=== PATIENT | male | born 1980 | race Caucasian/White ===

== ENCOUNTER 2025-05-22 07:12 | Emergency (ER) | payer OTHER, SELFPAY ==
--- NOTE | ~2025-05-22 | CT_ITS ---
EXAM: CTA chest PE protocol HISTORY: Pain with deep breath COMPARISON: None. PROCEDURE: Enhanced axial CT images of the chest using intravenous IV contrast. Dose reduction technique(s) was/were used. 3-D maximal intensity projection images (MIPS) obtained under concurrent supervision. FINDINGS: CTA: There is no positive evidence of pulmonary embolism. Mediastinum and Nancy: There is no adenopathy or mass. Heart: It is normal in size. There is no pericardial effusion. Lung and Airways: There is no abnormality demonstrated. Pleural spaces: There is no pleural fluid. There is no pneumothorax. Chest Wall and Axilla: No significant abnormality is seen. Upper Abdomen: There is no abnormality of the visualized structures. Bones: No destructive lesions are seen. The appearance is consistent with the patient's stated age. IMPRESSION: No positive evidence for pulmonary embolism. No significant abnormality is seen. Reviewed, dictated and finalized at location A. OL [employer]GE PROGRAM ASSOCIATE IMPRESSION: No positive evidence for pulmonary embolism. No significant abnormality is seen .
[2025-05-22 07:23] VITALS: BP 125/98; PULSE 84; RESP 18; TEMP 36.6; O2SAT 100
[2025-05-22 07:24] VITALS: PULSE 84; RESP 14; O2SAT 100
[2025-05-22 07:30] VITALS: BP 131/83; PULSE 82; RESP 20; O2SAT 100
[2025-05-22 07:31] VITALS: PULSE 82; RESP 17; O2SAT 100
[2025-05-22 07:45] VITALS: BP 135/92; PULSE 81; RESP 14; O2SAT 100
--- OUTSIDE RECORDS SUMMARY | 2025-05-22 08:07 | XMS_ITS | Clinical Summary ---
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 Name Role Phone Unavailable Primary Care Provider Unavailabl e Social History Tobacco Use Types Packs/Day Years Used Date Smoking Tobacco: Never Assessed Sex and Gender Information Value Date Recorded Sex Assigned at Not on file Legal Sex Male 9:24 AM [employer] Gender Identity Not on file Sexual Orientation Not on file Plan of Treatment Health Maintenance Due Date Last Done Comments Hepatitis C Virus (HCV) Screening 1979 Hepatitis B Immunization (1 of 3 - 19+ 3-dose series) 1998 Cologuard 2024 Colonoscopy 2024 Colorectal Cancer Screening 2024 Immunochemical Fecal Occult Blood 2024 Influenza Immunization (#1) 2025 04/17/2017 SARS-COV-2 Immunization ( season) 2025 Respiratory Syncytial Virus (RSV) Immunization (Adult) (1 - 1-dose 75+ series) 2054 DTaP/Tdap/Td Immunization Discontinued 12/19/2015 TdaP Immunization Completed 12/19/2015 Human Papillomavirus (HPV) Immunization Aged Out No longer eligible b ased on patient's age to complete this topic Meningococcal Immunization (ACWY) Aged Out No longer eligible based on patient's age to complete this topic Pneumococcal Immunization Combined Aged Out No longer eligible based on patient's age to complete this topic Rotavirus Immunization Aged Out No lo nger eligible based on patient's age to complete this topic
--- OUTSIDE RECORDS SUMMARY | 2025-05-22 08:07 | XMS_ITS | Clinical Summary ---
Author Organization [facility] at the [facility] Address [address] [place] [id number] Care Team Providers Care Art Coordinator Name Role Phone Keena Donnelly Primary Care Provider [phone] Galileo De La Fuente MD [facility] [phone] Allergies Active Allergy Reactions Criticality Noted Date Comments Codeine Hives,Rash,Swelli ng Medium 05/23/2017 Metoclopramide Anxiety,Nausea And Vomiting,Rash Medium 04/27/2015 Morphine Rash,Swelling,Unk nown Medium 04/27/2015 Nsaids (Non-Steroidal Anti-Inflammatory Drug) Rash Medium 08/12/2018 Renal insufficiency Prochlorperazine Anxiety,Nausea And Vomiting,Other (See comments),Rash Medium 07/12/2017 Promethazine Anxiety,Rash Medium 04/27/2015 Sulfa (Sulfonamide Antibiotics) Rash Medium 08/12/2018 Medications fluocinonide (LIDEX) 0.05 % creamIndications:D yshidrotic eczema,Contact dermatitis, unspecified contact dermatitis type, unspecified trigger Apply topically 2 (two) times a day as needed for irritation or rash Up to 2 weeks. 30 g 3 Active dicyclomine (BENTYL) 20 mg tabletIndications: Irritable bowel syndrome, unspecified type TAKE ONE TABLET BY MOUTH FOUR TIMES DAILY NEEDED FOR CRAMPING 20 tablet 3 4 Active ondansetron (ZOFRAN) 4 mg tabletIndications: Irritable bowel syndrome, unspecified type TAKE ONE TABLET BY MOUTH EVERY EIGHT hours NEEDED FOR nausea OR vomiting 20 tablet 3 4 Active sertraline (ZOLOFT) 100 mg tabletIndications: Generalized anxiety disorder Take 2 tablets (200 mg total) by mouth daily 180 tablet 4 Active clonazePAM (KlonoPIN) 1 mg tabletIndications: Generalized anxiety disorder Take 1 tablet (1 mg total) by mouth 3 (three) times a day as needed for anxiety 21 tablet 4 Active lovastatin (MEVACOR) 40 mg tabletIndications: Mixed hyperlipidemia TAKE ONE TABLET BY MOUTH DAILY 90 tablet 5 Active amLODIPine (NORVASC) 10 mg tabletIndications: Primary hypertension TAKE ONE TABLET BY MOUTH DAILY 90 tablet 5 Active metoprolol (LOPRESSOR) 100 mg tabletIndications: Primary hypertension TAKE ONE TABLET BY MOUTH TWICE DAILY 180 tablet 5 Active venlafaxine XR (EFFEXOR-XR) 37.5 mg 24 hr capsule Take 1 capsule (37.5 mg total) by mouth daily 5 Active traZODone (DESYREL) 50 mg tablet Take 1 tablet (50 mg total) by mouth nightly as needed for sleep 5 Active hydrOXYzine (VISTARIL) 25 mg capsule Take 1 capsule (25 mg total) by mouth every 4 (four) hours as needed for anxiety 5 Active Active Problems Problem Noted Date Diagnosed Date Routine adult health maintenance 10/14/2020 Overview (04/21/2023): Health Maintenance: -PCV13 vaccine: N/A -PPSV23 vaccine: N/A -Tdap vaccine: 2015 -Influenza vaccine: 2022 -Shingles vaccine: N/A -Colonoscopy: @45 -Last PSA: N/A -Last eye exam: N/A -Last MHA: N/A Assessment & Plan (04/21/2023 8:26 AM CDT): Health Maintenance: -PCV13 vaccine: N/A -PPSV23 vaccine: N/A -Tdap vaccine: 2015 -Influenza vaccine: 2022 -Shingles vaccine: N/A -Colonoscopy: @45 -Last PSA: N/A -Last eye exam: N/A -Last MHA: N/A Patient due for flu shot, administered today. Patient due for lab orders. Continue with healthy diet and exercise habits. See me annually for routine physicals. Assessment & Plan (11/30/2021 1:57 PM CDT): Health Maintenance: -PCV13 vaccine: N/A -PPSV23 vaccine: N/A -Tdap vaccine: 2016 -Influenza vaccine: due -Shingles vaccine: N/A -Colonoscopy: N/A -Last PSA: N/A -Last eye exam: N/A -Last MHA: N/A Patient is up-to-date on health maintenance. Annual labs have already been ordered. Work on healthy diet and exercise habits. See me annually for routine physicals. Assessment & Plan (10/15/2020 9:10 AM CDT): Health Maintenance: -PCV13 vaccine: N/A -PPSV23 vaccine: N/A -Tdap vaccine: 2016 -Influenza vaccine: due -Shingles vaccine: N/A -Colonoscopy: N/A -Last PSA: N/A -Last eye exam: 2020 -Last MHA: N/A Patient did not receive a flu shot this season, he is otherwise up-to-date on health maintenance. Annual labs ordered. Continue with healthy diet and exercise habits. See me annually for routine physicals. Eczema 10/14/2020 Irritable bowel syndrome 10/14/2020 Assessment & Plan (04/21/2023 8:25 AM CDT): Chronic. Refill sent for Zofran p.r.n.. Continue Bentyl p.r.n.. Continue to manage with diet, fiber supplement, and probiotic. Notify me of any new or changing symptoms. Assessment & Plan (11/30/2021 2:30 PM CDT): Chronic. Refill sent for Zofran p.r.n.. Continue Bentyl p.r.n.. Continue to manage with diet and probiotic. Notify me of any new or changing symptoms. Diverticulosis 10/14/2020 Assessment & Plan (04/21/2023 8:23 AM CDT): Chronic and stable. Patient has not had a flare in 2.5 years. Will continue to monitor. Assessment & Plan (11/30/2021 2:30 PM CDT): Chronic. No diverticulitis flare within the past year. Will continue to monitor. Assessment & Plan (10/15/2020 9:08 AM CDT): Patient is seeing a general surgeon at [facility]. They are discussing whether a partial colectomy needs to be performed due to his frequent diverticulitis flares. He will let me know if he needs a referral to a new general surgeon, in case [facility] no longer takes [place]. History of nephrectomy, left 10/14/2020 Assessment & Plan (04/21/2023 8:24 AM CDT): Chronic and stable. Continue to monitor kidney function. Assessment & Plan (11/30/2021 1:55 PM CDT): Will continue to monitor kidney function. Hyperlipidemia 12/29/2015 Assessment & Plan (07/25/2024 11:04 AM NON DESTRUCTIVE TESTING INSPECTOR): Chronic and stable. Continue lovastatin as prescribed. Assessment & Plan (05/20/2024 3:46 PM NON DESTRUCTIVE TESTING INSPECTOR): Patient due for labs, ordered today. Continue lovastatin. Work on healthy diet and exercise habits. Patient will see me soon for his annual physical. Assessment & Plan (04/21/2023 8:24 AM CDT): Chronic. Continue lovastatin 40 mg daily. Due for labs, orders placed. Work on healthy diet and getting at least 150 minutes of exercise per week. Assessment & Plan (11/30/2021 2:30 PM CDT): Chronic. Continue lovastatin 40 mg daily. Due for labs, already ordered. Work on healthy diet and getting at least 150 minutes of exercise per week. Assessment & Plan (10/15/2020 9:09 AM CDT): Patient due for labs, ordered today. Continue current management. Hypertension 12/29/2015 Assessment & Plan (07/25/2024 11:04 AM NON DESTRUCTIVE TESTING INSPECTOR): Chronic and stable. Continue amlodipine and metoprolol as prescribed. Assessment & Plan (05/20/2024 3:48 PM NON DESTRUCTIVE TESTING INSPECTOR): Chronic and controlled. Continue amlodipine and metoprolol as prescribed. Labs ordered. Low-salt diet. Work on getting 150 minutes of as per week. Assessment & Plan (04/21/2023 8:25 AM CDT): Chronic and controlled. Continue amlodipine and metoprolol as prescribed. Labs ordered. Low-salt diet. Work on getting 150 minutes of as per week. Assessment & Plan (11/30/2021 1:56 PM CDT): Chronic and controlled. Continue amlodipine and metoprolol as prescribed. Labs already ordered. Low-salt diet. Work on getting 150 minutes of as per week. Assessment & Plan (10/15/2020 9:09 AM CDT): Patient due for labs. Ordered today. Continue current management. Blood pressure is well controlled today. Generalized anxiety disorder 12/29/2015 Assessment & Plan (07/25/2024 12:17 PM NON DESTRUCTIVE TESTING INSPECTOR): During our visit my MA called his psychiatrist's office, I requested she find out their next availability so that I could relay that to the patient so he can schedule a follow-up. When I discussed again with the patient that I do not prescribe long-term benzodiazepines he became upset and stated w hat am I supposed to do, go to the ER? I stated that yes he may have to go to the ER if he experiences withdrawal like symptoms. I explained again that he needs to see his psychiatrist for long-term management of a benzodiazepine. 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 Once patient understood that I would not be providing a prescription for him today he got up and walked out of the room before we could finish our visit. Shortly after he left I received a call from [facility]. He presented to their ED stating that I would not fill any of his medication and he needed his Klonopin. I reviewed the patient's history with the SERVICE AIDE and explained that I am not the prescriber and that I have explained to him on more than one occasion that he needs to see psychiatry for refills, yet he has not scheduled an appointment. The ER SERVICE AIDE will reinforce the same message, that he needs to see psychiatry for mcfp care. Assessment & Plan (05/20/2024 3:49 PM NON DESTRUCTIVE TESTING INSPECTOR): Chronic and worsening due to his father's declining health. No SI. Patient lost his Klonopin a week ago. Discussed that I can send in a 1 week temp supply to get him through to his next refill. However I am not certain if the pharmacy will in fact be able to fill this. Patient is aware. Patient aware that I do recommend he see Psychiatry for long-term management of benzodiazepines. He was given a handout today with a list of psychiatrists in the area. I recommended he look into the walk-in clinic in [facility]. I also strongly encouraged him to look into counseling. This will be necessary in the coming months as his father's health declines. Will continue his Zoloft 200 mg daily. Consider hydroxyzine. Could try adding Wellbutrin if needed. Patient will follow-up with me in the next few weeks for his annual physical. Assessment & Plan (04/21/2023 8:24 AM CDT): Chronic and controlled. Continue Zoloft 200 mg daily. Continue Klonopin as prescribed by Psychiatry. Assessment & Plan (11/30/2021 1:55 PM CDT): Continue current management. Continue follow-up with Psychiatry. Notify me of any new or changing symptoms. Assessment & Plan (10/15/2020 9:09 AM CDT): Well controlled. Continue seeing Psychiatry. I have refilled his Zoloft today. Patient reports his medication is significantly more expensive when it comes from his psychiatrist vs PCP. He will continue to get Klonopin from his psychiatrist. History of pulmonary embolism 07/10/2000 Resolved Problems Problem Noted Date Diagnosed Date Resolved Date Diverticulitis 01/04/2019 10/14/2020 Stage 3a chronic kidney disease 12/29/2015 04/21/2023 Assessment & Plan (11/30/2021 1:56 PM CDT): Chronic and stable. Will continue to monitor. Assessment & Plan (10/15/2020 9:08 AM CDT): Patient due for labs, ordered today. Continue with no NSAID use. Stay hydrated. Encounters Date Type Department Care Team Description 05/08/2025 7:33 AM CDT - 05/08/2025 4:54 PM CDT [facility] [address] [place] [address] Heriberto Dubon DO Suicidal ideation (Primary Dx) Discharge Disposition: Discharge to psych hospital or psych unit from Last 3 Months Immunizations Immunization Administration Dates Next Due Influenza, Quadrivalent, Spl it, Preservative Free, Intramuscular 04/21/2023,04/17/2017 Influenza, Unspecified 04/09/2022(Deferr ed: Patient Refused),04/09/2021(Deferred: Patient Refused),04/09/2020(Deferred: Patient Refused) Tdap 12/19/2015 Surgical History Surgery Date Site/Laterality Comments NEPHRECTOMY Left Medical History Medical History Date Comments Diverticulitis 01/04/2019 Diverticulosis 10/14/2020 Eczema 10/14/2020 History of pulmonary embolism 07/10/2000 Hyperlipidemia 12/29/2015 Hypertension 12/29/2015 Irritable bowel syndrome 10/14/2020 Generalized anxiety disorder 12/29/2015 Chronic kidney disease (CKD), stage III (moderat e) ([facility]) 12/29/2015 Family History Medical History Relation Name Comments Cancer Father Jarad Desai Diabetes Father Jarad Desai Heart attack Father Jarad Desai Heart disease Father Jarad Desai Hyperlipidemia Father Jarad Desai Hypertension Father Jarad Desai Kidney disease Father Jarad Desai Transient ischemic attack Father Jarad Pires n enlarged prostate Father Jarad Desai Anemia Mother Marleny Desai Diabetes Mother Marleny Desai Hyperlipidemia Mother Marleny Desai Hypertension Mother Marleny Desai Panic attack Sister Relation Name Status Comments Father Jarad Desai Alive Maternal Grandfather Maternal Grandmother Mother Marleny Desai Alive Paternal Grandfather Paternal Grandmother Sister Alive Social History Tobacco Use Types Packs/Day Years Used Date Smoking Tobacco: Never Cigarettes Smokeless Tobacco: Never AUDIT-C Answer Date Recorded Q1: How often do you have a drink containing alcohol? Never 05/20/2024 Q2: How many drinks containi ng alcohol do you have on a typical day when you are drinking? Patient does not drink Q3: How often do you have si x or more drinks on one occasion? Never 05/20/2024 PHQ-2 Answer Date Recorded PHQ-2 Total Score (If total score is 3 or more points, staff should administer the PHQ-9) 2 07/25/2024 PHQ-9 Answer Date Recorded PHQ-9 Total Score 6 07/25/2024 Personal Safety Answer Date Recorded Have you ever been in or are you currently in a harmful physical or emotional relationship or is someone making you feel afraid or unsafe? Denies 05/08/2025 Sex and Gender Information Value Date Recorded Sex Assigned at Not on file Legal Sex Male 6:25 AM NON DESTRUCTIVE TESTING INSPECTOR Gender Identity Not on file Sexual Orientation Not on file Last Filed Vital Signs Vital Sign Reading Time Taken Comments Blood Pressure 130/85 05/08/2025 3:35 PM CDT Pulse 76 05/08/2025 3:35 PM CDT Temperature 37.1 C (98.7 F) 05/08/2025 7:52 AM CDT Respiratory Rate 16 05/08/2025 3:35 PM CDT Oxygen Saturation 99% 05/08/2025 3:35 PM CDT Inhaled Oxygen Concentration - - Weight 58.5 kg (129 lb) 05/08/2025 7:52 AM CDT Height 180.3 cm (5' 10.98) 05/08/2025 7:52 AM C DT Body Mass Index 18 05/08/2025 7:52 AM CDT Plan of Treatment Health Maintenance Due Date Last Done Comments Hepatitis C Screening 1979 Hepatitis B Screening 1997 Regular Well Visit/Exam 18-64 04/21/2024 04/21/2023, 11/30/2021, 10/15/2020, Additional history exists Covid-19 Vaccine ( season) 2025 06/08/2021, 12/01/2020 Influenza Vaccine (#1) 2025 04/21/2023, 2016 Depression Screening 07/25/2025 07/25/2024, 07/25/2024, 05/20/2024, Additional history exists DTaP/Tdap/Td Vaccine (2 - Td or Tdap) 12/18/2025 12/19/2015 Colon Cancer Screening-Colonoscopy 05/08/2027 05/08/2017, 01/05/2017 HPV Vaccines Aged Out No longer eligi ble based on patient's age to complete this topic Pneumococcal vaccine <65 Aged Out No longer eligible based on patient's age to complete this topic Procedures Procedure Name Priority Date/Time Associated Diagnosis Comments URINALYSIS, MICROSCOPIC ONLY STAT 05/08/2025 8:29 AM CDT DRUGS OF ABUSE SCREEN, URINE WITHOUT CONFIRMATION STAT 05/08/2025 8:29 AM CDT URINE CULTURE STAT 05/08/2025 8:29 AM CDT URINALYSIS AND REFLEX TO MICROSCOPIC AND CULTURE STAT 05/08/2025 8:29 AM CDT EGFR STAT 05/08/2025 7:48 AM CDT DIFFERENTIAL AUTO STAT 05/08/2025 7:4 8 AM CDT ETHANOL STAT 05/08/2025 7:48 AM CDT THYROID FUNCTION CASCADE STAT 05/08/2025 7:48 AM CDT COMPREHENSIVE METABOLIC PANEL STAT 05/08/2025 7:48 AM CDT CBC WITH AUTO DIFFERENTIAL STAT 05/08/2025 7:48 AM CDT COVID-19 CORONAVIRUS RNA STAT 05/08/2025 7:48 AM CDT COLONOSCOPY Routine 05/08/2017 from Last 3 Months or Most Recently Relevant to Health Maintenance Results * (ABNORMAL) Urinalysis reflex to microscopic and culture Urine (05/08/2025 8:29 AM CDT) Color, ur Straw Yellow Comment:Testing performed by : [facility], [address] [place] [address], [place]., [address] Clarity, ur Clear Clear MAHENDRA Comment:Testing performed by : [address], [place]., [address] Specific gravity, ur 1.015 1.003 - 1.030 MAHENDRA Comment:Testing performed by : [address], [place]., [address] pH, urine 8.5 MAHENDRA Comment: Interpretive Data U rine pH is affected by diet, medications, systemic acid-base disturbances, and renal tubular function. pH may affect urinary stone formation. For example, urine pH below 6.0 may help reduce the tendency for calcium phosphate stones and pH greater than 6.0 may reduce the tendency for uric acid stone formation. Source: [facility] [employer] Current Interpretive Data was last revised on 2017 Testing performed by: [address] [address] Protein, ur ql Trace(A) Negative MAHENDRA Comment:Testing performed by : [address] [address] Glucose, ur ql Negative Negative MAHENDRA Comment:Testing performed by : [address] [address] Ketones, ur Negative Negative MAHENDRA Comment:Testing performed by : [address] [address] Bilirubin, ur Negative Negative MAHENDRA Comment:Testing performed by : [address] [address] Blood, ur Negative Negative MAHENDRA Comment:Testing performed by : [address], [place]., [address] Urobilinogen, ur <2.0 <2.0 mg/dL MAHENDRA Comment:Testing performed by : [address], [place]., [address] Nitrite, ur Negative Negative MAHENDRA Comment:Testing performed by : [address] [address] Leukocyte esterase, ur 2 +(A) Negative MAHENDRA [place] Comment:Testing performed by : [address] [address] UA reflex comment Reflex to microscopic UA will be performed. MAHENDRA [place] Comment:Testing performed by : [address] [address] Urine 05/08/2025 8:29 AM CDT 05/08/2025 8:33 AM CDT Heriberto Dubon DO LAB MICROBIOLOGY - GENERAL ORDERABLES Final Result MAHENDRA FR[place] [address] [facility] Department [place] [address] * (ABNORMAL) Drugs of Abuse Screen, Urine without Confirmation (05/08/2025 8:29 AM CDT) Amphetamine, ur Not Detected CutOff 500ng/mL Comment: Interpretive Data - Amphetamines: Samples containing greater than 500 ng/mL d-methamphetamine or other cross-reacting amphetamine compounds are reported as positive. Amphetamine immunoassays are subject to significant false positive rates due to cross-reactivity of non-amphetamine drugs. Confirmatory testing required for definitive results. Current Interpretive Data was last reviewed 2023. Testing performed by: [address] [address] Barbiturates, ur Not Detected CutOff 200ng/mL MAHENDRA [place] Comment: Interpretive Data - Barbiturates: Samples containing greater than 200 ng/mL secobarbital or other cross-reacting barbiturate compounds are reported as positive. False positive and false negative results are possible. Confirmatory testing required for definitive results. Current Interpretive Data was last reviewed 2023. Testing performed by: [address] [address] Benzodiazepines, ur Screen Positive, presumptive (A) CutOff 100ng/mL MAHENDRA [place] Comment: Interpretive Data - Benzodiazepines: Samples containing greater than 100 ng/mL nordiazepam or other cross-reacting compounds are reported as positive. False positive and false negative results are possible. Confirmatory testing required for definitive results. Current Interpretive Data was last reviewed 2023. Testing performed by: [facility], [address] [place] [address]., [address] Cannabinoids, ur Screen Positive, presumptive (A) CutOff 50 ng/mL [facility] Comment: Interpretive Data - Cannabinoids: Samples containing greater than 50 ng/mL delta-9 THC -COOH or other cross- reacting compounds are reported as positive. False positive and false negative results are possible. Confirmatory testing required for definitive results. Current Interpretive Data was last reviewed 2023. Testing performed by: [facility], [address] [place] [address], [place]., [address] Cocaine, ur Not Detected CutOff 150ng/mL [facility] Comment: Interpretive Data - Cocaine: Samples containing greater than 150 ng/mL benzoylecgonine or other cross- reacting compounds are reported as positive. False positive and false negative results are possible. Confirmatory testing required for definitive results. Current Interpretive Data was last reviewed 2023. Testing performed by: [facility], [address] [place] [address]., [address] Fentanyl, Ur Not Detected CutOff 5 ng/mL [facility] Comment: Interpretive Data - Fentanyl: Samples containing greater than 1 ng/mL fentanyl or other cross-reacting fentanyl compounds are reported as positive. False positive and false negative results are possible. Confirmatory testing required for definitive results. Current Interpretive Data was last reviewed 2023. Testing performed by: [address] [address] Methadone, ur Not Detected CutOff 300ng/mL [facility] Comment: Interpretive Data - Methadone: Samples containing greater than 300 ng/mL d,l-methadone or other cross-reacting compounds are reported as positive. False positive and false negative results are possible. Confirmatory testing required for definitive results. Current Interpretive Data was last reviewed 2023. Testing performed by: [address], [place]., [address] Opiates, ur Not Detected CutOff 300ng/mL [facility] Comment: Interpretive Data - Opiates: Samples containing greater than 300 ng/mL morphine or other cross-reacting compounds are reported as positive. False positive and false negative results are possible. Confirmatory testing required for definitive results. Current Interpretive Data was last reviewed 2023. Testing performed by: [address] [address] Oxycodone, ur Not Detected CutOff 100ng/mL MAHENDRA Comment: Interpretive Data - Oxycodone: Samples containing greater than 100 ng/mL oxycodone or other cross-reacting compounds are reported as positive. False positive and false negative results are possible. Confirmatory testing required for definitive results. Current Interpretive Data was last reviewed 2023. Testing performed by: [address] [address] Phencyclidine, ur Not Detected CutOff 25 ng/mL MAHENDRA Comment: Interpretive Data - Phencyclidine: Samples containing greater than 25 ng/mL phencyclidine or other cross-reacting compounds are reported as positive. False positive and false negative results are possible. Confirmatory testing required for definitive results. Current Interpretive Data was last reviewed 2023. Testing performed by: [address] [address] Urine Creatinine 123 mg/dL MAHENDRA Comment: Interpretive Data Urine Creatinine: < 10 mg/dL is extremely dilute = or > 10 but < 20 mg/dL is dilute = or > 20 mg/dL is normal Current Interpretive Data was last revised on 2017. Testing performed by: [address] [address] Urine 05/08/2025 8:29 AM CDT 05/08/2025 8:35 AM CDT Narrative MAHENDRA - 05/08/2025 9:32 AM CDT Drug of Abuse screening is performed by immunoassay for medical purposes only. This is not to be used for Pain Management purposes. Heriberto Dubon DO LAB URINE ORDERABLES Final Result MAHENDRA [address] [facility] Department [place] [address] * (ABNORMAL) Urinalysis, microscopic only (05/08/2025 8:29 AM CDT) WBC, ur 11-20(A) 0 - 5 /HPF Comment:Testing performed by : [facility], [address] [place] [address], [place]., [address] RBC, ur 6-10(A) 0 - 2 /HPF MAHENDRA Comment:Testing performed by : [address], [place]., [address] Epithelial cells, squamous, ur 11-20(A) 0 - 5 /HPF MAHENDRA Comment:Testing performed by : [address], [place]., [address] Bacteria, ur Trace(A) MAHENDRA Comment:Testing performed by : [address], [place]., [address] Mucous, ur Present(A) MAHENDRA Comment:Testing performed by : [facility], [address] [place] [address], [place]., [address] Culture Reflex Comment Reflex to urine culture will be performed. MAHENDRA Comment:Testing performed by : [address], [place]., [address] Urine 05/08/2025 8:29 AM CDT 05/08/2025 8:33 AM CDT Heriberto Dubon DO LAB URINE ORDERABLES Final Result MAHENDRA [address] [facility] Department [place] [address] * Urine culture Urine (05/08/2025 8:29 AM CDT) Report Final Report: Less than 100,000 colonies/mL (clinically insignificant growth based on current clinical standards) Comment:Testing performed by : [facility], [address], [place]., [address] Organism (CLINICALLY INSIGNIFICANT GROWTH MAHENDRA Urine 05/08/2025 8:29 AM CDT 05/08/2025 11:28 AM CDT Narrative MAHENDRA - 05/09/2025 12:11 PM CDT Urine culture reflexed based upon urinalysis results. Testing performed by [facility] ([phone]) Heriberto Dubon DO LAB MICROBIOLOGY - GENERAL ORDERABLES Final Result Performing Organization Address City/[facility] Co de Phone Number MAHENDRA [place] [address] [facility] Department [place] [address] * COVID-19 Coronavirus RNA Nasopharyngeal (05/08/2025 7:48 AM CDT) COVID-19 RNA Negative Negative Comment:Testing performed by : [facility], [address] [place] [address]., [id number] Nasopharyngeal 05/08/2025 7: 48 AM CDT 05/08/2025 7:51 AM CDT Narrative MAHENDRA FRANCE - 05/08/2025 8:28 AM CDT Is the patient experiencing any symptoms consistent with COVID (eg. Fever, cough, shortness of breath)?->No What is the reason for testing?->Screening prior to Behavioral health admission Interpretive data Testing performed by [facility]. This test is performed using the [employer]ine[employer] Xpert Xpress CoV-2 plus assay. This is a real-time RT-PCR test intended for the qualitative detection of nucleic acid from the SARS-CoV-2. This assay has been cleared by the [place] Food and Drug administration. The performance characteristics have been verified by the [facility]. Results must be considered in the clinical context, and a negative result does not rule out infection. Interpretive data last revised 2024. Interpretive data Testing performed by [facility]. This test is performed using the [employer] Xpert Xpress CoV-2 plus assay. This is a real-time RT-PCR test intended for the qualitative detection of nucleic acid from the SARS-CoV-2. This assay has been cleared by the [place] Food and Drug administration. The performance characteristics have been verified by the [facility]. Results must be considered in the clinical context, and a negative result does not rule out infection. Interpretive data last revised 2024. us Heriberto Dubon DO LAB MICROBIOLOGY - GENERAL ORDERABLES Final Result Performing Organization Address City/[facility] de Phone Number MAHENDRA [facility] [place] [address] * eGFR (05/08/2025 7:48 AM CDT) [facility] eGFR >90 >=60 mL/min/1. 73 m2 Comment: Interpretive Data Reference Interval Normal >/= 90 mL/min/1.73m2 Mildly decreased* 60 - 89 mL/min/1.73m2 Mildly to moderately decreased 45 - 59 mL/min/1.73m2 Moderately to severely decreased 30 - 44 mL/min/1.73m2 Severely decreased 15 - 29 mL/min/1.73m2 Kidney Failure < 15 mL/min/1.73m2 *Relative to young adult level Estimated glomerular filtration rate is determined by the 2020 CKD-EPI equation recommended by the National Kidney Foundation (A Unifying Approach to GFR Estimation: Recommendations of the NKF-ASK Task Force on Reassessing the Inclusion of Race in Diagnosing Kidney Disease, JASN 2020). The CKD-EPI equation should not be used for patients with unstable renal function and has not been validated in children and those over 70. Current interpretive data was last reviewed 2021. Testing performed by: [address] [address] Blood 05/08/2025 7:48 AM CDT 05/08/2025 7:52 AM CDT Heriberto Dubon DO LAB BLOOD ORDERABLES Final Result Performing Organization Address [facility] Co de Phone Number MAHENDRA [facility] Department [place] [address] * Differential, auto (05/08/2025 7:48 AM CDT) [facility] Neutrophil abs 3.76 1.50 - 6.50 K/cumm Comment:Testing performed by : [address] [address] Imm gran abs 0.02 0.00 - 0.10 K/cumm MAHENDRA Comment:Testing performed by : [address] [address] Lymphocyte abs 2.14 0.80 - 3.30 K/cumm [facility] Comment:Testing performed by : [address] [address] Monocyte abs 0.72 0.20 - 0.80 K/cumm [facility] Comment:Testing performed by : [address] [address] Eosinophil abs 0.33 0.00 - 0.50 K/cumm [facility] Comment:Testing performed by : [address], [place]., [address] Basophil abs 0.08 0.00 - 0.10 K/cumm [facility] Comment:Testing performed by : [address] [address] Neutrophil pct 53.3 % [facility] Comment: Interpretive Data Percent cell count reference ranges are not reported, since discordance with absolute values may lead to misinterpretation of CBC data. Current Interpretive Data was last revised on 2017. Testing performed by: [address] [address] Imm gran pct 0.3 % [facility] Comment: Interpretive Data Percent cell count reference ranges are not reported, since discordance with absolute values may lead to misinterpretation of CBC data. Current Interpretive Data was last revised on 2017. Testing performed by: [address] [address] Lymphocyte pct 30.4 % [facility] Comment: Interpretive Data Percent cell count reference ranges are not reported, since discordance with absolute values may lead to misinterpretation of CBC data. Current Interpretive Data was last revised on 2017. Testing performed by: [address] [address] Monocyte pct 10.2 % [facility] Comment: Interpretive Data Percent cell count reference ranges are not reported, since discordance with absolute values may lead to misinterpretation of CBC data. Current Interpretive Data was last revised on 2017. Testing performed by: [address] [address] Eosinophil pct 4.7 % [facility] Comment: Interpretive Data Percent cell count reference ranges are not reported, since discordance with absolute values may lead to misinterpretation of CBC data. Current Interpretive Data was last revised on 2017. Testing performed by: [address] [address] Basophil pct 1.1 % MAHENDRA [place] Comment: Interpretive Data Percent cell count reference ranges are not reported, since discordance with absolute values may lead to misinterpretation of CBC data. Current Interpretive Data was last revised on 2017. Testing performed by: [address] [address] Blood 05/08/2025 7:48 AM CDT 05/08/2025 7:53 AM CDT Heriberto Dubon LAB BLOOD ORDERABLES Final Result Performing Organization Address [facility] Co de Phone Number [address] [place] [address] * Thyroid Function [place] (05/08/2025 7:48 AM CDT) Pathologist [facility] TSH 1.22 0.30 - 4.20 mcIUnit/mL Comment:Testing performed by : [address] [address] Blood 05/08/2025 7:48 AM CDT 05/08/2025 7:52 AM CDT Heriberto Dubon LAB BLOOD ORDERABLES Final Result Performing Organization Address City/[facility] Co de Phone Number [address] [place] [address] * (ABNORMAL) CBC with auto differential (05/08/2025 7:48 AM CDT) Pathologist [facility] WBC 7.05 3.80 - 9.90 K/cumm Comment:Testing performed by : [address] [address] Hgb 14.4 13.0 - 17.5 g/dL MAHENDRA [place] Comment:Testing performed by : [address], [address] Hct 42.0 38.9 - 50.3 % MAHENDRA Comment:Testing performed by : [address] [address] Plt 280 150 - 400 K/cumm MAHENDRA Comment:Testing performed by : [address] [address] MPV 8.6(L) 9.1 - 12.3 fL MAHENDRA Comment:Testing performed by : [address], [address] RBC 4.94 4.30 - 5.80 M/cumm MAHENDRA Comment:Testing performed by : [address], [address] MCV 85.0 81.3 - 96.4 fL MAHENDRA Comment:Testing performed by : [address], [address] MCH 29.1 27.1 - 33.3 pg MAHENDRA Comment:Testing performed by : [address], [address] MCHC 34.3 32.3 - 35.7 g/dL MAHENDRA Comment:Testing performed by : [address], [address] RDW CV 13.2 11.1 - 14.9 % MAHENDRA Comment:Testing performed by : [address], [address] RDW SD 41.1 35.7 - 48.1 fL MAHENDRA Comment:Testing performed by : [address], [address] NRBC abs 0.00 0.00 - 0.01 K/cumm MAHENDRA Comment:Testing performed by : [address], [address] Blood Venous blood specimen / Unknown 05/08/2025 7:48 AM CDT 05/08/2025 7:53 AM CDT Heriberto Dubon DO LAB BLOOD ORDERABLES Final Result Performing Organization Address [facility] Co de Phone Number [place] [phone] [place] [address] * Ethanol (05/08/2025 7:48 AM CDT) Pathologist [facility] Ethanol <10 <=10 mg/dL Comment: Interpretive Data Legal limit of intoxication > or = 80 mg/dL Levels > or = 400 mg/dL are potentially TOXIC. Current interpretive data was last revised on 2018. Testing performed by: [address] [address] Blood 05/08/2025 7:48 AM CDT 05/08/2025 7:52 AM CDT Heriberto Dubon DO LAB BLOOD ORDERABLES Final Result Performing Organization Address [facility] de Phone Number [place] [phone] [place] [address] * Comprehensive metabolic panel (05/08/2025 7:48 AM CDT) [facility] Sodium 140 135 - 145 mmol/L Comment:Testing performed by : [address] [address] Potassium, pl 4.1 3.3 - 4.9 mmol/L MAHENDRA Comment:Testing performed by : [address] [address] Chloride 101 97 - 110 mmol/L MAHENDRA Comment:Testing performed by : [address] [address] CO2 29 22 - 32 mmol/L MAHENDRA Comment:Testing performed by : [address] [address] Anion gap 10 2 - 15 mmol/L MAHENDRA Comment:Testing performed by : [address] [address] BUN 9 6 - 25 mg/dL MAHENDRA Comment:Testing performed by : [address] [address] Creatinine 1.00 0.80 - 1.30 mg/dL MAHENDRA Comment:Testing performed by : [address] [address] Glucose 96 70 - 199 mg/dL MAHENDRA Comment: Interpretive Data Fasting glucose >/= 126 mg/dl is diagnostic for diabetes. Fasting is defined as no caloric intake for at least 8 hours. Fasting glucose between 100 mg/dl to 125 mg/dl is diagnostic of prediabetes. In a patient with classic symptoms of hyperglycemia or hyperglycemic crisis, a random glucose >/= 200 mg/dl is diagnostic for diabetes. In the absence of unequivocal hyperglycemia, results should be confirmed by repeat testing. The classification and Diagnosis of Diabetes Diabetes Care 2021; 46: S19-S40. Current interpretive data was last revised 2022. Testing performed by: [address] [address] Calcium 9.6 8.5 - 10.3 mg/dL MAHENDRA Comment:Testing performed by : [address] [address] Bilirubin, total 0.4 0.1 - 1.2 mg/dL MAHENDRA Comment:Testing performed by : [address] [address] Protein, pl 7.3 6.5 - 8.5 g/dL MAHENDRA Comment:Testing performed by : [address] [address] Albumin 4.9 3.5 - 5.0 g/dL MAHENDRA Comment:Testing performed by : [address] [address] Alk phos 73 40 - 130 Units/L MAHENDRA Comment:Testing performed by : [address] [address] ALT 19 7 - 55 Units/L MAHENDRA Comment:Testing performed by : [address] [address] AST 16 10 - 50 Units/L MAHENDRA Comment:Testing performed by : [address] [address] Blood 05/08/2025 7:48 AM CDT 05/08/2025 7:52 AM CDT Heriberto Dubon DO LAB BLOOD ORDERABLES Final Result MAHENDRA MH [address] [facility] Department [place] [address] * Colonoscopy (05/08/2017) Anatomical Region Laterality Modality Other Historical Provider ENDOSCOPY PROCEDURES Ana Maria l Result from Last 3 Months or Most Recently Relevant to Health Maintenance Insurance [facility] Care Teams Art Coordinator Relationship Specialty Start Date End Date Keena Donnelly PA [address] [place] [address] PCP - General Family Medicine 10/15/20 Galileo De La Fuente MD [address] [place] [address] Consulting Physician Family Medicine 10/15/20
--- OUTSIDE RECORDS SUMMARY | 2025-05-22 08:07 | XMS_ITS | Clinical Summary ---
Author Organization [facility] Address [address] [place] [address] Care Team Providers Care Soil Conservation Technician Name Role Phone Unavailable Primary Care Provider Unavailabl e Source Comments [facility],non-owned Affiliates and Associated Physician Practices is amultiple site organization consisting of ambulatory clinics and hospital sitesin [place], [place], [place] and [place]. This disclosure is being madepursuant to the Care Everywhere program and may not contain all information available regarding this patient. Last updated 18.[facility] Allergies Active Allergy Reactions Criticality Noted Date Comments Codeine Skin Reactions Medium 08/24/2017 Metoclopramide Nausea and/or Vomiting Low 8 Morphine Skin Reactions Medium 08/24/2017 Nsaids Other Low 09/27/2017 Kidney Prochlorperazine Nausea and/or Vomiting Low 018 Sulfa Drugs Nausea and/or Vomiting Low 08/24/2017 Medications * Be aware that medications may not be up to date on this document. Alwaysverify current medications with the patient. metoprolol tartrate (LOPRESSOR) 100 MG tablet Take 100 mg by mouth BID. 08/21/2017 Active amLODIPine (NORVASC) 10 MG tablet Take 10 mg by mouth DAILY. 07/31/2017 Active lovastatin (MEVACOR) 20 MG tablet Take 20 mg by mouth DAILY. 07/31/2017 Active sertraline (ZOLOFT) 100 MG tablet Take 100 mg by mouth DAILY. 08/01/2017 Active clonazePAM (KLONOPIN) 1 MG tablet Take 1 mg by mouth 3X/day PRN. 08/10/2017 Active HYDROcodone-acet aminophen (NORCO) 10-325 MG tablet 0 08/11/2017 Active metroNIDAZOLE (FLAGYL) 500 MG tablet Take 500 mg by mouth TID. 30 tablet 0 10/10/2017 Active ciprofloxacin (CIPRO) 500 MG tablet Take 500 mg by mouth BID. 20 tablet 0 10/10/2017 Active ondansetron (ZOFRAN) 4 MG tablet Take 1 tablet by mouth every 8 hours as needed for Nausea/Vomi ting 15 tablet 10/18/2017 Active polyethylene glycol (GOLYTELY) 236 G solution Drink 1/2 of prep at 6pm the night before test. Finish the prep 4 hours before test. 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 Family History Medical History Relation Name Comments CVA Father Status: Alive Thyroid Disease Maternal Grandmother Stat us: Alive Arthritis - Rheumatoid Maternal Uncle Sta tus: Alive Hypertension Mother Status: Alive Other - Gastrointestinal Mother Div erticulitis Crohn's Disease Other Cousin Status: Aliv e None Known Sister Status: Alive Relation Name Status Comments Father Maternal Grandmother Maternal Uncle Mother Other Cousin Sister Social History Tobacco Use Types Packs/Day Years Used Date Smoking Tobacco: Never Smokeless Tobacco: Never Alcohol Use Standard Drinks/Week Comments No 0 (1 standard drink = 0.6 oz pur e alcohol) Sex and Gender Information Value Date Recorded Sex Assigned at Not on file 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 Gender Identity Not on file Sexual Orientation Not on file Last Filed Vital Signs Vital Sign Reading Time Taken Comments Blood Pressure 143/97 10/18/2017 4:26 AM CDT Pulse 60 10/18/2017 4:26 AM CDT Temperature 36.5 C (97.7 F) 10/18/2017 4:26 AM CDT Respiratory Rate 18 10/18/2017 4:26 AM CDT Oxygen Saturation 99% 10/18/2017 4:26 AM CDT Inhaled Oxygen Concentration - - Weight 86.2 kg (190 lb) 10/18/2017 4:26 AM CDT Height 180.3 cm (5' 11) 10/18/2017 4:26 AM CDT Body Mass Index 26.5 10/18/2017 4:26 AM CDT Plan of Treatment Health Maintenance Due Date Last Done Comments HYUN (AGES 45-75) - COL ON CA SCREENING 1979 COLON MONITORING 1979 COLONOSCOPY - COLON CA SCREENING 1979 CT COLONOGRAPHY - COLON CA SCREENING 1979 Colorectal Cancer Screening 1979 FIT - COLON CA SCREENING 1979 FLEX SIG - COLON CA SCREENING 1979 HIV SCREENING 1994 HEPATITIS C SCREENING 03/15/1997 DTAP/TDAP/TD VACCINES (1 - Tdap) 1998 HEPATITIS B VACCINE (1 of 3 - 19+ 3-dose series) 1998 DEPRESSION SCREENING 07/10/2024 COVID-19 VACCINE (1 - 2023-2 5 season) 2025 INFLUENZA VACCINE (#1) 2025 ZOSTER VACCINE (1 of 2) 2029 HIB VACCINE Aged Out No longer eligi ble based on patient's age to complete this topic HPV VACCINE Aged Out No longer eligi ble based on patient's age to complete this topic MENINGOCOCCAL (Group B) VACC INE SHARED DECISION-MAKING Aged Out No longer eligibl e based on patient's age to complete this topic MENINGOCOCCAL GROUPS A/C/Y/W VACCINE Aged Out No longer eligible b ased on patient's age to complete this topic PNEUMOCOCCAL VACCINE Aged Out No long er eligible based on patient's age to complete this topic Insurance [facility]
--- OUTSIDE RECORDS SUMMARY | 2025-05-22 08:07 | XMS_ITS | Patient Health Record ---
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 Name Role Phone Dean Prince Primary Care Provider Lois Oleary Unavailable [phone] Li Reyna Unavailable [phone] ZoranGhada Unavailable [phone] Allergies Allergen (clinical drug ingredient) Drug/Non Drug Allergy documented on EMR Reaction Allergy Type Onset Date Status codeine Codeine Unknown Drug Allergy Active morphine Morphine Unknown Drug Allergy Active Substance with sulfonamide structure and antibacterial mechanism of action (substance) Sulfa Antibiotics Unknown Drug Allergy Active Results Component Value Reference Range Notes 14 Panel Urine Drug Screen Reviewed date:05/14/2025 11:20:38 AM Interpretation: Performing Lab: Notes/Report: THC pos LUH neg MOP (OPI) neg AMP neg MET neg BAR neg BZO neg MDMA neg MTD neg OXY neg PCP neg BUP neg TCA neg FTY neg CBC With Differential/Platel et* Reviewed date:05/20/2025 10:55:10 AM Interpretation:Normal Performing Lab:[facility] [place], [address] [facility] ([facility] Phone - [phone], Director - PhDRicchiuti Notes/Report: WBC 11.4 3.4-10.8 x10E3/uL RBC 4.78 4.14-5.80 x10E6/uL Hemoglobin 14.2 13.0-17.7 g/dL Hematocrit 44.1 37.5-51.0 % MCV 92 79-97 fL MCH 29.7 26.6-33.0 pg MCHC 32.2 31.5-35.7 g/dL RDW 13.7 11.6-15.4 % Platelets 300 150-450 x10E3/uL Neutrophils 62 Not Estab. % Lymphs 22 Not Estab. % Monocytes 11 Not Estab. % Eos 3 Not Estab. % Basos 1 Not Estab. % Neutrophils (Absolute) 7.2 1.4-7.0 x10E3/uL Lymphs (Absolute) 2.5 0.7-3.1 x10E3/uL Monocytes(Absolute) 1.2 0.1-0.9 x10E3/uL Eos (Absolute) 0.3 0.0-0.4 x10E3/uL Baso (Absolute) 0.1 0.0-0.2 x10E3/uL Immature Granulocytes 1 Not Estab. % Immature Grans (Abs) 0.1 0.0-0.1 x10E3/uL CMP 14 Comprehensive Metabol ic Panel* Reviewed date:05/20/2025 10:55:10 AM Interpretation:Normal Performing Lab:[facility] [place], [address] [facility] ([facility] Phone - [phone], Director - PhDSancta Maria Hospitalida Notes/Report: Glucose 81 70-99 mg/dL BUN 18 6-24 mg/dL Creatinine 1.02 0.76-1.27 mg/dL eGFR 92 >59 mL/min/1.73 BUN/Creatinine Ratio 18 9-20 Sodium 138 134-144 mmol/L Potassium 4.1 3.5-5.2 mmol/L Chloride 99 96-106 mmol/L Carbon Dioxide, Total 24 20-29 mmol/L Calcium 9.4 8.7-10.2 mg/dL Protein, Total 7.1 6.0-8.5 g/dL Albumin 4.7 4.1-5.1 g/dL Globulin, Total 2.4 1.5-4.5 g/dL Bilirubin, Total <0.2 0.0-1.2 mg/dL Alkaline Phosphatase 72 47-123 IU/L AST (SGOT) 23 0-40 IU/L ALT (SGPT) 30 0-44 IU/L QuantiFERON-TB Gold Plus (18 2879) Reviewed date:05/20/2025 10:55:10 AM Interpretation:Normal Performing Lab:[facility] [place], [address] [facility] ([facility] Phone - [phone], Director - PhDSancta Maria Hospitalidai Notes/Report: QuantiFERON Incubation Incubation performed. QuantiFERON-TB Gold Plus Negative Negative No response to M tuberculosis antigens detected. Infection with M tuberculosis is unlikely, but high risk individuals should be considered for additional testing (ATS/IDSA/CDC Clinical Practice Guidelines, 2017). The reference range is an Antigen minus Nil result of <0.35 IU/mL. Chemiluminescence immunoassay methodology QuantiFERON Criteria QuantiFERON-TB Gold Plus is a qualitative indirect test for M tuberculosis infection (including disease) and is intended for use in conjunction with risk assessment, radiography, and other medical and diagnostic evaluations. The QuantiFERON-TB Gold Plus result is determined by subtracting the Nil value from either TB antigen (Ag) value. The Mitogen tube serves as a control for the test. QuantiFERON TB1 Ag Value 0.03 QuantiFERON TB2 Ag Value 0.03 QuantiFERON Nil Value 0.05 QuantiFERON Mitogen Value >10.00 Breathalyzer Reviewed date:05/14/2025 11:21:03 AM Interpretation: Performing Lab: Notes/Report: MILLIE 0.000 Reason For Referral Reason Patient needs and wa nts therapy services - currently on CRU Diagnosis 1 MDD (major depressiv e disorder) (F32.9) Referral Organization [facility] Referring Provider First Name Li Referring Provider Last Name Maribell Referring Provider Speciality Psychiatry Referred Provider Specialty Behavioral [facility] Referral Priority Routine Reason Last colonoscopy [address] Goff @ [facility]. Has hx of diverticular disease. Diagnosis 1 Diverticular disease (K57.90) Diagnosis 2 Colon cancer screeni ng (Z12.11) Referral Organization [facility] Referring Provider First Name Prince Referring Provider Last Name Dean [facility]erring Provider [facility] Med ad[facility] Referred Provider Specialty Gastroentero logy General Notes Maryam ABDI, Nalini Guillory 05/2025 09:41:23 AM > confirmed taking insurance faxed referral letter mailed Clinical Notes Marcelo Campbell, Manager Labor Delivery , [address] [place] [address], , fax [phone] Referral Priority Routine Medications Medication SIG (Take, Route, Frequency, Duration) Notes Start Date End Date Status traZODone HCl 50 MG 1 tablet at bedtime as needed Orally Once a day 05/14/2025 Active clonazePAM 1 MG 1 tablet Orally 3 times a day As needed Active Sertraline HCl 100 MG 2 tablets Orally Once a day 05/14/2025 Active Venlafaxine HCl ER 75 MG 1 capsule with food Orally Once a day 05/14/2025 Active Metoprolol Tartrate 100 MG 1 tablet with food Orally Twice a day 05/14/2025 Active Lovastatin 40 MG 1 tablet by mouth daily Orally daily 05/14/2025 Active Dicyclomine HCl 10 MG 2 capsules Orally Three times a day; Duration: 30 day(s) 05/20/2025 Active Ondansetron HCl 4 MG 1 tablet as needed throughout the day Orally Once a day; Duration: 30 days Yes, keep it once a day. He is on 2 other seretonin meds and he is having some nausea and abd. cramping 05/20/2025 Active hydrOXYzine Pamoate 25 MG 1-2 capsules Orally every 4 hours as needed for anxiety, agitation, or inability to sleep. Do not give within 4 hours of diphenhydramine.; Duration: 30 days 05/14/2025 Active Melatonin 5 MG 1 tablet at bedtime as needed Orally Once a day; Duration: 30 days 05/14/2025 Active Multi Vitamin - 1 tablet Orally Once a day; Duration: 30 days 05/14/2025 Active Social History Tobacco Use: Social History Observation Description Date Details (start date - stop date) Former Smoker NA - NA Sex Assigned At : Social History Observation Description Sex Assigned At Male Tobacco Control (Standard) Question Answer Notes Tobacco use: Former smoker Section Notes: Tobacco use: Quit smoking cigarettes Support system: No support system Drug use: Denies current marijuana use; used to smoke weed occasionally, stopped due to adverse effects Alcohol use: Denies - - - - - - - - - - - ADDITIONAL SOCIAL HISTORY 05/19/2025: - - - - - - - - - - - PERSONAL BACKGROUND HISTORY Describe childhood- [place] both parents were in the , moved around a lot. Grew up with one sister. Abuse/Trauma- None Education- Some college Occupation- [employer] part-time Legal History- None Spiritual Affiliation- None Other Social History - Single, no children, no Hx. Reports that he doesn't have a lot of family or friends for support. Support system: No support system - - - - - - - - - - - ALCOHOL/DRUG HISTORY None - Used to smoke cannabis and drink alcohol but hasn't in a quite a while due to adverse effects. - - - - - - - - - - - PAST PSYCHIATRIC HISTORY Past Psychiatrist or Therapist - Psychiatric Diagnosis(es) - Panic Disorder, Agoraphobia, Grief Past Psychiatric Medications - bupropion - caused brain zaps. Inpt Psych Hospitalizations - [facility] x 3 for SI - all in 2024 Suicidal Ideation Hx - Endorses Hx Suicide Attempt(s) - None Homicidal Ideation - None Self-Injury/High Risk Bx - None - - - - - - - - - - - FAMILY PSYCHIATRIC HISTORY Suicides or Attempts - None Alcohol/Drug Use - None Anxiety - Mother - - - - - - - - - - - - - - - - - - - - - - ADDITIONAL SOCIAL HISTORY 05/19/2025: - - - - - - - - - - - PERSONAL BACKGROUND HISTORY Describe childhood- [place] both parents were in the , moved around a lot. Grew up with one sister. Abuse/Trauma- None Education- Some college Occupation- [employer] part-time Legal History- None Spiritual Affiliation- None Other Social History - Single, no children, no Hx. Reports that he doesn't have a lot of family or friends for support. Support system: No support system - - - - - - - - - - - ALCOHOL/DRUG HISTORY None - Used to smoke cannabis and drink alcohol but hasn't in a quite a while due to adverse effects. - - - - - - - - - - - PAST PSYCHIATRIC HISTORY Past Psychiatrist or Therapist - Psychiatric Diagnosis(es) - Panic Disorder, Agoraphobia, Grief Past Psychiatric Medications - bupropion - caused brain zaps. Inpt Psych Hospitalizations - [facility] x 3 for SI - all in 2024 Suicidal Ideation Hx - Endorses Hx Suicide Attempt(s) - None Homicidal Ideation - None Self-Injury/High Risk Bx - None - - - - - - - - - - - FAMILY PSYCHIATRIC HISTORY Suicides or Attempts - None Alcohol/Drug Use - None Anxiety - Mother - - - - - - - - - - - Problems Problem Type SNOMED Code ICD Code Onset Dates Problem Status W/U Status Risk Notes Problem Hypertension (78082365) Hypertension (I10) Active confirmed Problem Hyperlipidemia (24448381) Hyperlipidemia (E78.5) Active confirmed Problem General examination of patient (529915918) Routine general medical examination at a health care facility (Z00.00) Active confirmed Problem Generalized anxiety disorder (70366160) LISA (generalized anxiety disorder) (F41.1) Active confirmed Problem Panic disorder (409236800) Panic disorder (F41.0) Active confirmed Problem Major depressive disorder (514031055) MDD (major depressive disorder) (F32.9) Active confirmed Problem Mental health disorder (73908368) Mental health disorder (F99) Active confirmed Problem History of pulmonary embolus (358647135) History of pulmonary embolism (Z86.711) Active confirmed Problem Diverticular disease (231593759) Diverticular disease (K57.90) Active confirmed Vital Signs Heart Rate 74 /min 05/20/2025 Temperature 97.1 degrees Fahrenheit 05/20/2025 Respiratory Rate 20 /min 05/20/2025 Blood pressure diastolic 84 mm Hg 05/20/2025 Oximetry 100 % 05/20/2025 Height 71 in 05/20/2025 Blood pressure systolic 132 mm Hg 05/20/2025 Weight 155.0 lbs 05/20/2025 BMI 21.62 kg/m2 05/20/2025 Encounters Encounter Location Date Provider Diagnosis [facility] [address] [place] [address] 05/14/2025 Lois Oleary Routine general medical examination at a health care facility Z00.00 [facility] [address] [place] [address] 05/14/2025 Ghada Meehan Mental health disord er F[address] [facility] [place] [address] 05/19/2025 Li Reyna MDD (major depressiv e disorder) F32.9 ; Panic disorder F41.0 ; LISA (generalized anxiety disorder) F41.1 and Medication management Z79.899 [facility] [address] [place] [address] 05/20/2025 Prince Moran Adult general medica l examination Z00.00 ; Low energy R53.83 ; Hyperlipidemia E78.5 ; Hypertension I10 ; Diverticular disease K57.90 ; History of pulmonary embolism Z86.711 ; Encounter for screening for diabetes mellitus Z13.1 and Colon cancer screening Z12.11 Assessments Encounter Date Diagnosis (ICD Code) Assessment Notes Treatment Notes Treatment Clinical Notes Section Notes 05/14/2025 Routine general medical examination at a health care facility (ICD-10 - Z00.00) Admit to the crisis unit for 24-hour observation and initiate standing/protocol orders: The following PRN medications may be self-administered by patients under the supervision of approved staff or administered by nursing staff: Ibuprofen 200mg, 2-4 tablets by mouth (with food) every 6 hours as needed for pain (unless on lithium). (NOTE: Ibuprofen and acetaminophen may be given together, but alternating is recommended for continuous pain relief. Guaifenesin 400 mg, 1 tablet by mouth every four hours as needed for cough and chest congestion (take with large glass of water). Loratadine 10 mg, 1 tablet by mouth daily as needed for allergies, watery itchy eyes, or sinus drainage. Throat Lozenges, up to 4 tablets by mouth every three to four hours as needed for sore throat. Antacid tablets, 1-2 tablets by mouth every one to two hours as needed for indigestion or heart burn. If the client prefers liquid, could use: Liquid Antacid : 1 ounce by mouth up to four times daily as needed for indigestion or heartburn Omeprazole 20mg, 1 capsule by mouth once daily for 14 days for frequent heartburn (frequent heartburn is more than 2 episodes per week). Do not exceed 14 days. Do not give to client already taking a proton-pump inhibitor: esomeprazole (Nexium), lansoprazole (Prevacid), pantoprazole (Protonix), rabeprazole (Aciphex), dexlansoprazole (Dexilant) Zofran ODT disintegrating (under the tongue) 4 mg, 1-2 tablets every 8 hours as needed for nausea/vomiting. Milk of Magnesia (MOM): 1 ounce (30 milliliters) by mouth every day as needed for constipation. OR Miralax: Stir and fully dissolve 17 grams (1 packet or 1 capful to measured line) in any 4 to 8 ounces of beverage then drink once daily for constipation. Do not use for more than 7 days. OR Docusate 100 mg, 1 capsule twice daily as needed for constipation Hydrocortisone 1% Cream, apply topically (to the skin) to the affected area up to three times daily as needed for itching or inflammation (avoid eyes and genitals). 2% Antifungal Cream, apply topically (to the skin) as directed as needed to affected areas for athlete's foot or jock itch. Triple Antibiotic Ointment, apply topically (to the skin) up to three times daily as needed for minor cuts and scrapes. Carmex or Chapstick, apply topically (to the skin) as needed for chapped lips and skin. Orajel, apply to affected areas as needed for mouth or tooth pain. Lubricating Eye Drops, instill 1-2 drops to the affected eye(s) as needed for dry/irritated eye(s). Hemorrhoid medications, apply to affected area according to directions as needed for hemorrhoid discomfort and itch. Nix (Permethrin 1%) cream 2 ounces, apply topically (to the skin) as directed as needed for head lice. Sunscreen 30 SPF, Apply to exposed skin prior to exposure to sun. The following PRN medications must be approved by nursing staff before self-administratio n by patients: Diphenhydramine 25 mg, 2 tablets by mouth every 4 hours as needed for allergic reaction or itchy rash. Caution: Do not use hydroxyzine within 4 hours of diphenhydramine and vice versa. Loperamide 2 mg capsules, may give two capsules by mouth for the initial dose, followed by one capsule up to 3 times a day as needed for diarrhea. Acetaminophen 500 mg, 1 - 2 tablets by mouth every six hours as needed for pain. (NOTE: Ibuprofen and acetaminophen may be given together, but alternating is recommended for continuous pain relief). Oxygen-May administer oxygen 2L/min via nasal cannula if O2 saturation is less than 92%, AND client complains of shortness of breath. Target O2 saturation is 94-98%. Caution: Remember too much oxygen can be detrimental to a client with COPD. Oxygen is a drug and should be delivered by trained staff only. Nurses may remove superficial splinters and sutures from skin lacerations. May apply gauze or bandages to any weeping wounds. Contact nursing if there is pus, a foul odor, increased pain/redness/swell ing, or if soaking through bandages. Patient presented for routine physical and medication continuation. No acute complaints reported. Medication list reviewed and confirmed. - Continue current medications: venlafaxine, lovastatin, metoprolol, sertraline, trazodone, Klonopin. 05/14/2025 Mental health disorder (ICD-10 - F99) 05/19/2025 Panic disorder (ICD-10 - F41.0) [place]. Last filled on 05/14/2025 by [facility] - #82 for 27-day supply. 05/19/2025 MDD (major depressive disorder) (ICD-10 - F32.9) 05/20/2025 Adult general medical examination (ICD-10 - Z00.00) - The patient is due for labs, will call with results - The patient is UTD on vaccines, recommended annual flu vaccines and COVID boosters as appropriate - Discussed weight loss techniques including increased physical activity, healthy diet. Encouraged patient to aim for a goal of 150 minutes of moderate-intensity exercise and 2 days of strength training. Educated them on the importance of starting small and building on their successes. - Discussed healthier eating habits including frequent meals which are carb/protein balanced. Discussed avoidance of simple carbohydrates, encouraged portion-controlled complex carbohydrates. - Recommended increasing water intake and avoiding sugary beverages, excess caffeine and alcohol intake - Follow up in 2 weeks for bp check or sooner with any questions, concerns. - Patient denies any concerns with her plan of care. People verbalizes understanding and agrees to plan of care. 05/20/2025 Low energy (ICD-10 - R53.83) 05/19/2025 LISA (generalized anxiety disorder) (ICD-10 - F41.1) 05/20/2025 Hyperlipidemia (ICD-10 - E78.5) 05/20/2025 Hypertension (ICD-10 - I10) Maintain metoprolol currently, will have patient come back in 2 weeks for re-evaluation. Take BP once daily for next 2 weeks and keep log to show at next follow up. 05/19/2025 Medication management (ICD-10 - Z79.899) May self-administer medications or be administered own oral medications per [facility] protocols. Provided informed consent with understanding of side effects, adverse effects, risks and benefits as well as alternative treatments as previously discussed and with the above recommended medications & other aspects of the treatment program. Agrees to return sooner if symptoms worsen or suicidal or homicidal ideations occur. May also contact the 24-hour crisis hotline, refer to the closest emergency room or call 911 if new symptoms arise of existing symptoms worsen. The Patient/Guardian is aware that this would apply to symptoms like: suicidal ideation, homicidal ideation, high risk behaviors, manic symptoms, psychotic symptoms, physical symptoms, or any other symptoms that may be dangerous to self or others. 05/20/2025 Diverticular disease (ICD-10 - K57.90) 05/20/2025 History of pulmonary embolism (ICD-10 - Z86.711) Will monitor for now. 05/20/2025 Encounter for screening for diabetes mellitus (ICD-10 - Z13.1) 05/20/2025 Colon cancer screening (ICD-10 - Z12.11) 05/14/2025 Other Clinician met w ith client to assess needs for residential services. Clinician gathered information regarding historical presentation of mental health and substance use symptoms including withdrawal, HIV Risk assessment, psychiatric hospitalization history and presenting concern. Clinician conducted PHQ9 and CSSRS assessments as well as social drivers of health screening for the purposes of identifying additional service needs. Plan Of Treatment Future Test Test Name Order Date Vitamin B1 (Thiamine), Blood 05/20/2025 Vitamin B12 and Folate 05/20/2025 Vitamin D, 25-Hydroxy* 05/20/2025 Lipid Panel With LDL/HDL Ratio TSH+Free T4 05/20/2025 Hemoglobin A1c 05/20/2025 Insurance Providers Payer Name Payer Address Payer Phone Subscriber Number Group Number Insured Name Patient Relationship to Insured Coverage Start Date Coverage End Date [employer] [facility] Att[employer] Claims Department [address] [place] [address] [phone] [id number] Mario Desai Self - patient is the insured [employer] Att[employer] Claims Department [address] [place] [address] [phone] [id number] Mario Desai Self - patient is the insured Medical (General) History Medical History History ICD Code Pulmonary Embolism Left Nephrectomy L posterior fascicular heart block Hypertension I10 Hyperlipidemia E78.5 Surgical History Surgery Date(Month/Year) stent in left kidney x2 Left nephrectomy (kidney rem oval), due to congenital upj obstruction - childhood Hospitalization History Reason Date(Month/Year) Mental Health - [place] x3 Mental Eval 1 07/2024
--- OUTSIDE RECORDS SUMMARY | 2025-05-22 08:07 | XMS_ITS | Encounter Summary ---
Author Organization [facility] Care Team Providers Care Legal Document Specialist Name Role Phone Donis Goff MD Primary Care Provider [phone] Keena Donnelly Primary Care Provider [phone] Galileo De La Fuente MD Unavailable [phone] Encounter Details Date Type Department Care Team (Latest Contact Info) Description 01/27/2016 Orders Only [facility] CLINCONV ProviderBarron MD [address] [place] [id number] Social History Tobacco Use Types Packs/Day Years Used Date Smoking Tobacco: Never Assessed Sex and Gender Information Value Date Recorded Sex Assigned at Not on file Legal 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 Historical Provider Final Res ult * SCAN - LABS (01/28/2016 12:00 AM CDT) Narrative 01/28/2016 12:00 AM CDT Ordered by an unspecified provider. Historical Provider Final Res ult documented in this encounter Visit Diagnoses Not on filedocumented in this encounter Care Teams Legal Document Specialist Relationship Specialty Start Date End Date Donis Goff MD [address] [address] [place] [address] PCP - General 08/06/17 10/14/20 Keena Donnelly PA [address] [place] [address] PCP - General Family Medicine 10/15/20 Galileo De La Fuente MD [address] [place] [address] Consulting Physician Family Medicine 10/15/20 documented as of this encounter
[2025-05-22 08:21] LABS: Hematocrit 41.7 % (42.0-52.0); Hemoglobin 13.6 g/dL (14.0-18.0); Immature Granulocyte Percent A 1.8 % (0-0.5); Lymphocytes Absolute Auto 2.36 K/mm3 (0.9-3.2); Mean Corpuscular HGB Conc 32.6 g/dl (32-36); Mean Corpuscular Hemoglobin 29.2 pg (26-34); Mean Corpuscular Volume 89.5 fl (80-100); Nucleated Red Blood Cells Absolute Auto 0.000 K/mm3 (0.0-0.012); Nucleated Red Blood Cells Perc 0.0 % (0.0-0.2); Platelet Count Result 252 k/mm3 (150-375); Red Blood Count 4.66 M/mm3 (4.6-6.20); White Blood Count 10.9 K/mm3 (4.5-10.0)
[2025-05-22] MEDS: ACETAMINOPHEN 325 MG TABLET 650 MG PO (08:27)
[2025-05-22 08:32] LABS: INR 0.9; Prothrombin Time 12.0 Seconds (11.1-14.7)
[2025-05-22 08:33] LABS: Partial Thromboplastin Time 27.3 Seconds (22.3-36.8)
[2025-05-22 08:45] LABS: Alanine Aminotransferase 44 U/L (6-50); Albumin Level 4.2 g/dL (3.5-5.1); Alkaline Phosphatase 73 U/L (38-126); Anion Gap 4 mmol/L (4-12); Aspartate Amino Transferase 40 U/L (17-59); Bilirubin,Total 0.3 mg/dL (0.2-1.3); Blood Urea Nitrogen 16 mg/dL (9-20); Calcium 9.0 mg/dL (8.4-10.2); Carbon Dioxide 31 mmol/L (22-30); Chloride 103 mmol/L (98-107); Estimated CRCL calculation 89 ml/min; Estimated Glomerular Filt Rate > 60; Glucose 95 mg/dL (65-110); Potassium 4.7 mmol/L (3.4-5.0); Sodium 138 mmol/L (137-145); Total Protein 6.9 g/dL (6.3-8.2)
[2025-05-22 08:57] LABS: NT Pro B Type Natriuretic Pept 189 pg/mL (19.9-100); Troponin I < 0.012 ng/mL (0.000-0.034)
--- NOTE | 2025-05-22 10:02 | ED_ITS ---
HPI - Back Pain/Injury General Chief Complaint: Back Pain/Injury Stated Complaint: back pain with inspiration Time Seen by Provider: 05/22/25 07:29 History of Present Illness HPI Narrative: Patient is a 45-year-old male who presents ER with pain in the upper back. Worse with deep breath. No so this morning when waking up. Has history of PE would like to be evaluated for its return. No hemoptysis. No leg swelling or calf pain. He was playing some basketball yesterday that may have caused muscle ache. Symptoms do worsen with twisting and bending. Related Data Allergies Allergy/AdvReac Type Severity Reaction Status Date / Time metoclopramide (From Reglan) Allergy Mild Unknown Verified 05/22/25 07:29 codeine Allergy Unknown unknown Verified 05/22/25 07:29 morphine Allergy Unknown Unknown Verified 05/22/25 07:29 prochlorperazine (From Allergy Unknown Unknown Verified 05/22/25 07:29 Compazine) promethazine (From Phenergan) Allergy Unknown Unknown Verified 05/22/25 07:29 Sulfa (Sulfonamide Allergy Unknown Unknown Verified 05/22/25 07:29 Antibiotics) NSAIDS (Non-Steroidal AdvReac Unknown Unknown Verified 05/22/25 07:29 Anti-Inflamma Review of Systems 2 Review of Systems: All systems reviewed & are unremarkable except as noted in HPI and below Constitutional: Constitutional: Reports no additional constitutional complaints Cardiovascular: Cardiovascular: Reports no additional cardiovascular complaints Respiratory: Respiratory: Reports no additional respiratory complaints Integumentary/Breasts: Skin/Breast: Reports system reviewed and no additional complaints, except as docu PMFSH Past Medical History Medical History (Updated 05/22/25 @ 10:26 by Heriberto Ng MD) Pulmonary embolism Surgical History Surgical History (Updated 05/22/25 @ 10:22 by Heriberto Ng MD) History of nephrectomy, left Exam 2 Narrative: GENERAL: Well-appearing, well-nourished, and in no acute distress. HEAD: Normocephalic, atraumatic. ENT: Mucous membranes moist. CHEST: Clear to auscultation. No respiratory distress. HEART: Regular rate and rhythm. Normal peripheral pulses. ABDOMEN: Soft, nontender, nondistended. EXTREMITIES: Normal range of motion. No edema. SKIN: Warm, dry, no rash. NEURO: Alert and oriented x3. PSYCH: Normal mood and affect. Course Course Emergency Course: Unremarkable evaluation. Appropriate for discharge home. Will recommend Tylenol for pain as he has multiple other allergies. Vital Signs Vital signs: Vital Signs Temperature 97.8 F 05/22/25 07:23 Pulse Rate 84 05/22/25 07:23 Respiratory Rate 18 05/22/25 07:23 Blood Pressure 125/98 H 05/22/25 07:23 Pulse Oximetry 100 05/22/25 07:23 Oxygen Delivery Room Air 05/22/25 07:23 Temperature 97.8 F 05/22/25 07:23 Pulse Rate 81 05/22/25 07:45 Respiratory Rate 14 05/22/25 07:45 Blood Pressure 135/92 H 05/22/25 07:45 Pulse Oximetry 100 05/22/25 07:45 Oxygen Delivery Room Air 05/22/25 07:23 MDM - Back Pain/Injury Differential Diagnosis Differential diagnosis: Likely other ( PE, aortic dissection ACS, muscle strain) Lab Data Attestation: I reviewed the patient's lab results. 05/22/25 08:06 05/22/25 08:06 Labs: Lab Results 05/22/25 Range/Units 08:06 WBC 10.9 H (4.5-10.0) K/mm3 RBC 4.66 (4.6-6.20) M/mm3 Hgb 13.6 L (14.0-18.0) g/dL Hct 41.7 L (42.0-52.0) % MCV 89.5 (80-100) fl MCH 29.2 (26-34) pg MCHC 32.6 (32-36) g/dl RDW 13.4 (11.5-14.5) % Plt Count 252 (150-375) k/mm3 MPV 8.6 (7.4-10.4) fl Immature Gran % (Auto) 1.8 H (0-0.5) % Neut % (Auto) 60.4 (45.5-73.1) % Lymph % (Auto) 21.7 (18.3-44.2) % [place] % (Auto) 10.1 H (2.6-8.5) % Eos % (Auto) 5.0 H (0-4.4) % Baso % (Auto) 1.0 (0.2-1.2) % Lymph # (Auto) 2.36 (0.9-3.2) K/mm3 [place] # (Auto) 1.1 H (0.1-0.6) K/mm3 Eos # (Auto) 0.5 H (0-0.3) K/mm3 Baso # (Auto) 0.1 (0.0-0.1) K/mm3 Abs Immat Gran (auto) 0.20 H (0.00-0.031) K/mm3 Absolute Neuts (auto) 6.6 (1.3-6.7) K/mm3 Absolute Nucleated RBC 0.000 (0.0-0.012) K/mm3 Nucleated RBC % 0.0 (0.0-0.2) % PT 12.0 (11.1-14.7) Seconds INR 0.9 APTT 27.3 (22.3-36.8) Seconds Sodium 138 (137-145) mmol/L Potassium 4.7 (3.4-5.0) mmol/L Chloride 103 (98-107) mmol/L Carbon Dioxide 31 H (22-30) mmol/L Anion Gap 4 (4-12) mmol/L BUN 16 (9-20) mg/dL Creatinine 0.90 (0.7-1.3) mg/dL Estim Creat Clear Calc 89 ml/min Estimated GFR > 60 (59 - ) Glucose 95 (65-110) mg/dL Calcium 9.0 (8.4-10.2) mg/dL Total Bilirubin 0.3 (0.2-1.3) mg/dL AST 40 (17-59) U/L ALT 44 (6-50) U/L Alkaline Phosphatase 73 (38-126) U/L Troponin I < 0.012 (0.000-0.034) ng/mL NT-Pro-B Natriuret Pep 189 H (19.9-100) pg/mL Total Protein 6.9 (6.3-8.2) g/dL Albumin 4.2 (3.5-5.1) g/dL Imaging Data Attestation: I personally reviewed and interpreted this imaging study as follows: Radiologist's impression: ITS Impressions Chest CTA 05/22/25 09:06 IMPRESSION: No positive evidence for pulmonary embolism. No significant abnormality is seen. Discharge Plan Discharge Clinical Impression: Back strain Patient Disposition: Home Condition: Stable Instructions: Low Back Strain (ED) Additional Instructions: Please return to the emergency department if you develop severe pain that is not controlled by pain medications or if you are unable to walk because of pain or weakness. Return to the emergency department immediately if you develop fevers, loss of bowel or bladder control (dribbling of urine or having accidents you wouldn't normally have), inability to urinate, numbness of your genital or anal area, or weakness/numbness of your legs or arms as these could all be signs of a serious medical emergency. Patient Language: Vietnamese Prescriptions: New acetaminophen 500 mg capsule 500 mg PO QID PRN (Reason: pain) Qty: 14 0RF Follow-up/Referrals: PHYSICIAN,COSTUMING SUPERVISOR [Primary Care Provider, Internal Medicine] Garret Ledesma MD [Physician, Family Practice] - 1 Week
--- NOTE | 2025-05-22 10:46 | PC.NURSE ---
Omkar, nurse, at [facility] given report on patient. Omkar to arrange for somebody at their facility to pick patient up.
== END 2025-05-22 10:43 | disposition home or self-care (01) ==
PROVIDERS: Emergency Provider Emergency Medicine
DX: S29.012A Strain of muscle and tendon of back wall of thorax, initial encounter (principal); Z86.711 Personal history of pulmonary embolism; Z90.5 Acquired absence of kidney; X58.XXXA Exposure to other specified factors, initial encounter; Y93.67 Activity, basketball
CPT/HCPCS: 36415; 71275; 80053; 83880; 84484; 85025; 85610; 85730; 99284; A9270; Q9967